=== PATIENT | female | born 1980 | race Caucasian/White ===

== ENCOUNTER → 2019-08-11 07:50 | Outpatient (BNVA) | payer OTHER, MEDICAID, SELFPAY | PROVIDERS: Family Provider Nurse Practitioner Family; PCP Nurse Practitioner Family; Visit Provider Obstetrics & Gynecology | DX: Z01.89 Encounter for other specified special examinations (principal) | CPT/HCPCS: 84315 ==

== ENCOUNTER → 2019-08-11 07:52 | Outpatient (BNVA) | payer OTHER, MEDICAID, SELFPAY | PROVIDERS: Family Provider Nurse Practitioner Family; PCP Nurse Practitioner Family; Visit Provider Nurse Practitioner Women's Health | DX: O99.323 Drug use complicating pregnancy, third trimester (principal) | CPT/HCPCS: 80305; 84315 ==

== ENCOUNTER 2019-08-15 09:51 | Outpatient (CLI) | payer OTHER, MEDICAID, SELFPAY ==
[2019-08-15] VITALS (8 sets, daily range): BP systolic 119–148; BP diastolic 86–93; PULSE 80–101; RESP 17–18; TEMP 36.2; BMI 28.2
== END 2019-08-15 12:45 | disposition home or self-care (01) ==
LOC: OPOB 10:07 → OBGYN 11:14 → OPOB 08-16 17:51
PROVIDERS: Family Provider Nurse Practitioner Family; PCP Nurse Practitioner Family; Visit Provider Obstetrics & Gynecology
DX: O26.899 Other specified pregnancy related conditions, unspecified trimester (principal); Z3A.00 Weeks of gestation of pregnancy not specified; R10.9 Unspecified abdominal pain
CPT/HCPCS: 59025; 99211

== ENCOUNTER 2019-08-16 02:53 | Inpatient (IN) | payer OTHER, MEDICAID, SELFPAY ==
[2019-08-16] VITALS (21 sets, daily range): BP systolic 112–151; BP diastolic 75–99; PULSE 65–91; RESP 15–18; TEMP 36.4–36.8; O2SAT 98; BMI 28.2
[2019-08-16] MEDS: fentaNYL 50 mcg/mL INJ 2mL IV (03:09)
[2019-08-16] MEDS: lactated ringers 1,000 ML 999 ML IV (03:13)
--- NOTE | 2019-08-16 03:15 | PC.NURSE ---
Dr. Macias on unit and in call room.
[2019-08-16 03:20] LABS: Basophils % 0.3 %; Eosinophils % 0.2 %; Hemoglobin 13.5 g/dL (11.5-15.3); Lymphocytes % 17.4 %; Mean Corpuscular HGB Conc 33.8 g/dL (30.0-36.0); Mean Corpuscular Hemoglobin 30.3 pg (28.0-34.0); Mean Corpuscular Volume 89.9 fL (81-99); Mean Platelet Volume 10.8 fL (7.4-10.4); Monocytes # 0.9 10^3/uL (0.2-0.9); Neutrophils # 8.5 10^3/uL (1.8-7.7); Neutrophils % 73.6 %; Nucleated Red Blood Cells % 0 %; Platelet Count 240 10^3/cmm (130-400); Red Blood Count 4.45 10^6/uL (4.1-5.3); Red Cell Distribution Width 14.1 % (12.1-15.1); White Blood Count 11.6 10^3/uL (4.0-10.0)
[2019-08-16 04:01] LABS: Amphetamines Screen Urine Negative (Negative); Barbiturates Screen Urine Negative (Negative); Benzodiazepines Screen Urine Negative (Negative); Cocaine Screen Urine Negative (Negative); Opiate Screen Urine Negative (Negative); PCP Screen Urine Negative (Negative); THC Screen Urine Negative (Negative)
[2019-08-16] MEDS: ketorolac 30 mg/mL INJ IVP (04:08)
--- NOTE | 2019-08-16 04:19 | PM.DELIVERY ---
 Delivery Note: Date of delivery: 08/16/19 Pre-delivery diagnoses: 1. Term at 38-3/7 weeks gestation, 2. Advanced maternal age in multigravida in third trimester, 3. Marijuana use in , 4. Smoker. Post-delivery diagnoses: 1. Term at 38-3/7 weeks gestation -delivered, 2. Advanced maternal age in multigravida in -delivered, 3. Marijuana use in -delivered, 4. Smoker, 5. Viable female Procedure: Spontaneous vaginal delivery Anesthesia: none Delivering Physician: Dr. Levon Macias Estimated blood loss (mL): 100 Pre-Delivery Course: Patient is a 39-year-old white female 7, para 4-0-2-4 with an LMP of 01/13/2019 and an EDC of 08/27/2019 based on 18-week ultrasound, which placed her at 38-3/7 weeks gestation. She presented to labor and delivery at 01: 35 on 08/16/2019 with complaint of contractions. She was found to be romelia every 2 to 8 minutes and was 75% effaced and 4 to 5 cm dilated. She was watched over the next hour and made cervical change and was noted to be 5 to 6 cm dilated. She was admitted to the hospital. She continued to contract irregularly. However, she continued to progress and was found to be completely dilated at 03: 39. Spontaneous rupture of membranes with clear fluid occurred at that time. Baby was reassuring during the labor course. Delivery: Patient pushed 1 time and delivered at 03: 43 as a spontaneous vaginal delivery of an occiput anterior female infant over an intact perineum under no anesthesia. Following delivery of the 's head, no loops of nuchal cord were noted. The rest of the infant delivered atraumatically with the left shoulder anterior. Infant was placed on the mother's abdomen where the cord was clamped and then cut by a family member. Infant was spontaneously crying and left in the care of the waiting nurses. Pitocin bolus was started. Placenta delivered intact by simple expression at 03: 52. Cervix and vagina were palpated and noted to be intact. Labia were inspected and noted be intact except for superficial abrasions which required no repair. Post-Delivery Status: Mother and were left to recover in satisfactory condition. Coding Level of Care Code Acute Electric Meter Repairer Apprentice for g Birdie
--- NOTE | 2019-08-16 06:57 | PC.NURSE ---
patient has a current open case.
--- NOTE | 2019-08-16 07:44 | PC.NURSE ---
BABY TO THE BREAST. WAS AWAKE BUT QUIET. DID LATCH WELL AND NURSED BRIEFLY. MOM REPORTED MILD NIPPLE PAIN. ATTEMPTED TO ADJUST THE POSITIONING BUT BABY CAME OFF THE BREAST AND WENT TO SLEEP. DISCUSSED POSITION WITH MOM. SHE BREASTFED HER LAST BABY FOR 18 MONTHS. SHE HAS NO CONCERNS AT PRESENT. PROVIDED LITERATURE AND CONTACT INFORMATION.
[2019-08-16 16:54] LABS: Hematocrit 35.9 % (37.0-47.0); Hemoglobin 11.6 g/dL (11.5-15.3); Mean Corpuscular HGB Conc 32.3 g/dL (30.0-36.0); Mean Corpuscular Hemoglobin 29.6 pg (28.0-34.0); Mean Corpuscular Volume 91.6 fL (81-99); Mean Platelet Volume 10.6 fL (7.4-10.4); Platelet Count 203 10^3/cmm (130-400); Red Blood Count 3.92 10^6/uL (4.1-5.3); Red Cell Distribution Width 14.4 % (12.1-15.1); White Blood Count 12.3 10^3/uL (4.0-10.0)
[2019-08-17 06:19] VITALS: BP 121/77; PULSE 71; RESP 16; TEMP 36.7
--- NOTE | 2019-08-17 08:36 | PM.DCS ---
Discharge Providers Date of Admission: 08/16/19 02:53 Date of Discharge: 08/17/19 Attending Provider at Admission: Levon Macias Attending Provider at Discharge: Levon Macias Primary Care Provider: Ale Bravo Diagnoses at Discharge Discharge Diagnosis (1) Term delivered: Status: Acute (2) Advanced maternal age, delivered: Status: Acute (3) complicated by maternal drug use, delivered, current hospitalization: Status: Acute Problem details: Marijuana use during (4) Tobacco use during , delivered: Status: Acute Reason for Visit Reason for Visit: Reason For Visit: CONTRACTIONS Hospital Course Hospital Course: Patient is a 39-year-old white female 7, para 4-0-2-4 with an LMP of 01/13/2019 and an EDC of 08/27/2019 based on an 18-week ultrasound, which placed her at 38-3/7 weeks gestation at the time of admission. She presented to labor and delivery with the complaint of contractions at 01: 35 on 08/16/2019. She was found to be romelia every 2 to 8 minutes and was 75% effaced and 4 to 5 cm dilated. She was rechecked approximately an hour later and had progressed to 5 to 6 cm dilation. She was admitted to the hospital and continued to contract irregularly. However, she did continue to make cervical change and progressed to complete dilation by 03: 39. She had spontaneous rupture of membranes at that time with clear fluid present. Baby had reassuring heart tones during the labor course. Patient pushed 1 time and delivered a spontaneous vaginal delivery of an occiput anterior female over an intact perineum under no anesthesia at 03: 43 on 08/16/2019. The baby weighed 3145 g with a length of 20-1/2 inches and Apgars of 8 at 1 minute and 9 at 5 minutes. She had superficial lacerations which required no repair. DAY 1 She reports doing well without complaints. She reported tolerating a regular diet without nausea or vomiting. She reported passing flatus. She stated that her pain was well controlled. She denied any shortness of breath or chest pains. She denied any lightheadedness or dizziness with ambulation. She was breast-feeding. She was requesting to go home. PHYSICAL EXAM See below. PLAN Discharge to home. Discharge instructions discussed with patient. control options were discussed and partner is planning a vasectomy at this time. Patient to follow-up in the office in approximately 6 weeks for checkup. Physical Exam Const: COMMON NORMALS: no apparent distress, average body habitus, alert and well nourished GENERAL APPEARANCE: well developed ORIENTATION/CONSCIOUSNESS: Yes oriented to person, Yes oriented to place and Yes oriented to time Resp: COMMON NORMALS: normal respiratory effort and clear to auscultation bilaterally AUSCULTATION: clear to auscultation bilaterally Cardio: COMMON NORMALS: regular rate, regular rhythm, no gallops and no rub RATE: regular rate RHYTHM: regular rhythm GI: COMMON NORMALS: soft to palpation, non-tender, no hepatosplenomegaly and no masses (Except for nontender uterus, approximately 1-1/2 fingerbreadths below the umbilicus.) AUSCULTATION: Yes normoactive bowel sounds PALPATION: Yes soft, Yes no hepatosplenomegaly and No hernia : EXTERNAL FEMALE EXAM: No hernia Extremity: RIGHT LOWER EXTREMITY: Yes lower leg (1+ edema) Right lower leg: Yes palpation (No calf pain bilaterally) LEFT LOWER EXTREMITY: Yes lower leg (1+ edema) Left lower leg: Yes palpation (No calf pain bilaterally) Neuro: SENSORIUM/ORIENTATION: Yes alert, Yes oriented to person, Yes oriented to place and Yes oriented to time Psych: COMMON NORMALS: affect normal MOOD & AFFECT: Yes euthymic mood Discharge Data Data Completed and Pending: Labs from last 24 hours 08/16/19 16:29 WBC 12.3 H RBC 3.92 L Hgb 11.6 Hct 35.9 L MCV 91.6 MCH 29.6 MCHC 32.3 RDW 14.4 Plt Count 203 MPV 10.6 H Procedures Performed: 08/16/2019: Spontaneous vaginal delivery by Dr. Levon Macias Vitals: Last Vital Signs Temp 98.1 F 08/17/19 06:19 Pulse 71 08/17/19 06:19 Resp 16 08/17/19 06:19 BP 121/77 08/17/19 06:19 Pulse Ox 98 08/16/19 15:54 Discharge Plan Discharge Patient Disposition: Home, Self-Care Condition: Stable Prescriptions: New ibuprofen 800 mg Tablet 800 mg PO TID PRN (Reason: p) Qty: 30 RF: 0 Continued Vitamin 27 mg iron- 800 mcg Tablet 1 tab PO DAILY RF: 0 Discharge Orders: Discharge Order (Routine); Ordered 08/17/19 Ordered By: Levon Macias Referrals: Levon Macias MD [Physician] - 6 Weeks ( Your 6 week follow up is with Chely Ana Goldman September 28, 2019 at 10:30am. ) Discharge Diet: Regular Discharge Activity: Resume usual activity Patient Instructions: Ibuprofen (By mouth), OB Discharge Report, OB Food/Drug Interaction Guide, OB Care at Home, OB Home Care, OB Proud Parent Packet, OB Vaginal Deliveries - [facility] Activity Restrictions/Additional Instructions: Provide my delivery instructions Discharge Date/Time: 08/17/19 10:53 Discharge Attestations Time Spent in Discharge Care*: less than 30 min Quality Metrics Clinical Quality Measures During this hospital stay, did patient experience: None Coding Level of Care Code Acute Geotechnicial Properties Technician for Chg Fwd Diagnoses Term delivered O80 Advanced maternal age, delivered complicated by maternal drug use, delivered, current hospitalization O99.324; F19.90 Tobacco use during , delivered O99.334
[2019-08-17 10:27] VITALS: BP 138/90; PULSE 82; RESP 16; TEMP 36.7
[2019-08-17 10:33] VITALS: BP 138/90; PULSE 82; RESP 16; TEMP 36.7
== END 2019-08-17 10:53 | disposition home or self-care (01) | DRG 807 ==
LOC: OBGYN 02:54
PROVIDERS: Admitting Provider Obstetrics & Gynecology; Family Provider Nurse Practitioner Family; PCP Nurse Practitioner Family; Visit Provider Obstetrics & Gynecology
DX: O99.324 Drug use complicating childbirth (principal); Z37.0 Single live birth; F12.90 Cannabis use, unspecified, uncomplicated; Z3A.38 38 weeks gestation of pregnancy; O99.334 Smoking (tobacco) complicating childbirth; F17.210 Nicotine dependence, cigarettes, uncomplicated
CPT/HCPCS: 36415; 59409; 80307; 85025; 85027; 96375; 99211; J1885; J3010